=== PATIENT | male | born 2000 | race African-American/Black ===

== ENCOUNTER 2024-12-21 23:53 | Emergency (ER) | payer OTHER ==
[~2024-12-21] VITALS: Ht 172.7 cm; Wt 73.0 kg
[2024-12-22] MEDS ORDERED: BACITRACIN 14GM TUBE TOP ONE
[2024-12-22 00:12] VITALS: BP 122/68; PULSE 82; RESP 16; TEMP 36.9; O2SAT 99
== END 2024-12-22 00:42 ==
LOC: EDBD 23:53 → ER 23:53
DX: S50.312A Abrasion of left elbow, initial encounter (principal); S80.212A Abrasion, left knee, initial encounter; S80.211A Abrasion, right knee, initial encounter; M41.9 Scoliosis, unspecified; Z02.89 Encounter for other administrative examinations; Z65.3 Problems related to other legal circumstances; W13.2XXA Fall from, out of or through roof, initial encounter; Y93.39 Activity, other involving climbing, rappelling and jumping off; Y92.89 Other specified places as the place of occurrence of the external cause; Y99.8 Other external cause status
CPT/HCPCS: 99283; Z7610